=== PATIENT | female | born 1975 | race Caucasian/White ===

== ENCOUNTER 2017-05-01 06:36 | Inpatient (IN) | payer OTHER ==
[~2017-05-01 06:36] MED LIST: CITRIC ACID/SODIUM CITRATE 30 ML UNIT-DOSE CUP PO ONE; ELECTROLYTE-148 SOLN 500 ML IV ONE
[2017-05-01] MEDS ORDERED: ELECTROLYTE-148 SOLN 1,000 ML IV SCH (07:37)
[2017-05-01 07:39] VITALS: BMI 30.2
[2017-05-01] MEDS ORDERED: oxyCODONE HCL 5 MG TABLET PO PRN (08:00)
[2017-05-01] MEDS ORDERED: IBUPROFEN 800 MG/8 ML IJ IVPB PRN (08:00)
[2017-05-01] MEDS ORDERED: METHYLERGONOVINE MALEATE 0.2 MG/1 ML AMP IM PRN (08:00)
--- NOTE | 2017-05-01 08:03 | HP ---
Past Medical History - Admission History of Present Illness: 41 y/o female with h/o X 5 and C/S X 1 here for scheduled repeat c section at 39 weeks. Pt counseled on TOLAC and pt declined. complicated by AMA otherwise no complications. HIV negative, GBS negative. RH positive. HepBSag negative. History Source: Patient, Medical Record Limitations to Obtaining History: No Limitations - Past Medical History Cardiovascular: No: HTN, [place] Pulmonary: No: Asthma, COPD Gastrointestinal: No: GERD Hepatobiliary: No: Hepatitis B, Hepatitis C Renal/: No: Hematuria, UTI Reproductive: No: Ectopic , Fibroids, PID ...: 8 ...Para: 6 ...Term: 5 ...: 1 ...Spon : 1 ...Induced : 0 ...Multiple Gestation: 0 ...LMP: 07/18/16 ... Weeks Gestation by Dates: 41.0 ...EDC by Dates: 04/24/17 ...EDC by Sono: 05/08/17 Infectious Disease: No: HIV, STD's Psych: No: Anxiety, Bipolar, Depression Endocrine: No: Diabetes Mellitus, Hyperthyroidism - Past Surgical History Hx Myomectomy: No Hx Transabdominal Cerclage: No - Smoking History Smoking history: Never smoked Have you smoked in the past 12 months: No - Alcohol/Substance Use Hx Alcohol Use: No History of Substance Use: reports: None - Social History Usual Living Arrangement: Yes: Alone History of Recent Travel: No Home Medications - Allergies Allergies/Adverse Reactions: Allergies Allergy/AdvReac Type Severity Reaction Status Date / Time No Known Allergies Allergy Verified 05/01/17 07:08 - Home Medications Home Medications: Ambulatory Orders Pnv95/Ferrous Fumarate/FA [ Tablet] 1 each PO DAILY #1 07/10/12 Review of Systems - Review of Systems Constitutional: reports: No Symptoms Eyes: reports: No Symptoms HENT: reports: No Symptoms Neck: reports: No Symptoms Cardiovascular: reports: No Symptoms Respiratory: reports: No Symptoms Gastrointestinal: reports: No Symptoms Genitourinary: reports: No Symptoms Breasts: reports: No Symptoms Reported Musculoskeletal: reports: No Symptoms Integumentary: reports: No Symptoms Neurological: reports: No Symptoms Endocrine: reports: No Symptoms Hematology/Lymphatic: reports: No Symptoms Physical Exam - Maternity Vital Signs: Vital Signs Temperature 98.0 F 05/01/17 07:21 Pulse Rate 88 05/01/17 07:21 Respiratory Rate 20 05/01/17 07:21 Blood Pressure 115/71 05/01/17 07:21 O2 Sat by Pulse Oximetry (%) Constitutional: Yes: Well Nourished, No Distress, Calm Eyes: Yes: Conjunctiva Clear, EOM Intact HENT: Yes: Atraumatic, Normocephalic Neck: Yes: Supple, Trachea Midline Cardiovascular: Yes: Regular Rate and Rhythm Lungs: Clear to auscultation - Abdominal Exam/OB Number of Fetuses: Single Presentation: Vertex Contractions: No Monitor Mode: External Category: I Accelerations: Uniform Decelerations: None - Vaginal Exam/OB Speculum Exam: No Amniotic Membrane Status: Intact Presentation: Vertex/Position - Physical Exam Psychiatric: Yes: Alert, Oriented Hemorrhage Risk Assessment - Risk Factors Medium Risk Factors: Yes: None High Risk Factors: Yes: None Risk Score: 1 Risk Level: Medium Risk Problem List - Problems (1) Advanced maternal age (AMA), 40 years or greater Code(s): DAN6100 - (2) Elderly multigravida Code(s): O09.529 - SUPERVISION OF ELDERLY MULTIGRAVIDA, UNSPECIFIED TRIMESTER Assessment/Plan 41 y/o female with SIUP at 39 weeks, scheduled repeat delivery - AFVSS - Hgb 10.7 preop - NPO, SCDs, Diaz catheter - anesthesia and nursery aware - consents signed
[2017-05-01] MEDS ORDERED: morphine SULFATE/Preservative Free 0.5 MG/ML (1cc Syringe) SPIN ONE (08:16)
[2017-05-01] MEDS ORDERED: ONDANSETRON 4 MG/2 ML VIAL IVPUSH PRN (08:26)
--- NOTE | 2017-05-01 09:03 | OP ---
Operative Note - Note: Operative Date: 05/01/17 Pre-Operative Diagnosis: Prior delivery, declined TOLAC, SIUP at 39 weeks Operation: Repeat delivery Findings: normal b/l tubes and ovaries Post-Operative Diagnosis: Same as Pre-op Surgeon: Bernadette Bowman Equipment Maintenance Superintendent: Miller Hermosillo Anesthesiologist/SURGICAL SERVICES DIRECTOR: Joshua Cintron Anesthesia: Spinal Specimens Removed: placenta, cord blood sample Estimated Blood Loss (mls): 600 Fluid Volume Replaced (mls): 1,000 Operative Report Dictated: Yes
[2017-05-01] MEDS ORDERED: TUBERCULIN PPD 5 TU/0.1ML SYRINGE (IN PATIENT USE ONLY) ID ONE (10:00)
--- NOTE | 2017-05-01 10:11 | OP ---
DATE OF OPERATION: 05/01/2017 PREOPERATIVE DIAGNOSIS: Single intrauterine at 39 weeks, prior delivery, declined trial of labor after delivery. PROCEDURE: Repeat low transverse delivery. ESTOP SURGEON: Bernadette Bowman MD INTERNET RESEARCHER: Miller Hermosillo PA-C ANESTHESIA: Spinal. ANESTHESIOLOGIST: Joshua Cintron MD ESTIMATED BLOOD LOSS: 600 mL. COMPLICATIONS: None. SPECIMENS: Included placenta, cord blood collection. COUNTS: Sponge and needle counts correct. DISPOSITION: Stable to the PACU. BRIEF HISTORY AND PROCEDURE: Patient is a 41-year-old G8, P6 female with a history of a prior delivery who was counseled in the office on her options and elected to undergo a repeat delivery. The patient was scheduled for May 01, 2017. The patient was admitted to the hospital and consents were signed for the procedure. The patient was then taken back to the operating room where she was given spinal anesthesia by Dr. Cintron without difficulty and placed in the dorsal supine position on the table. Diaz catheter was placed under sterile conditions. She was then prepped and draped in the usual sterile fashion, and a hard time-out was performed. A Pfannenstiel skin incision was created in the skin and carried down to the underlying layer of rectus fascia with a scalpel. The rectus fascia was incised on either side of the midline and carried in superolateral direction with the Bovie. Then, the fascia was tented upward and dissected off the underlying layer of rectus muscle with the Bovie. The muscles were tented upward and dissected in the midline sharply until the peritoneum was identified, which was entered bluntly, and dissected to allow for adequate room for delivery. The bladder blade was inserted, a bladder flap was then created, and a bladder blade adjusted to protect the bladder. A low transverse incision on the uterus was completed and carried in a superolateral direction bluntly. The infants head was then delivered from the right occiput transverse position. The anterior and posterior shoulders were delivered with ease along with the remainder of the . The cord was clamped twice and cut in between. The was taken over to the warmer to be assessed by Neonatology staff, where the scores were 9 and 9. The placenta was then delivered manually and intact. The uterus was exteriorized from the abdomen, inspected, and cleared of all amniotic membrane and debris with a dry lap sponge. The hysterotomy was reapproximated in a double-layer closure using 0 Biosyn suture in a running locked fashion. The second layer again was 0 Biosyn suture in an imbricating layer. The bilateral fallopian tubes and ovaries were noted to be within normal limits. The posterior cul-se-sac was suctioned. The uterus was placed back in the abdomen. Bilateral gutters were inspected and cleared of all debris. Hysterotomy was noted to be hemostatic. The peritoneal layer was reapproximated using 2-0 chromic in a running layer. The musculature was reapproximated with 2 interrupted sutures using 2-0 chromic and 0 Biosyn. The fascia was reapproximated using 1 Vicryl in a running fashion. The subcutaneous tissue was irrigated and reapproximated in 2 layers using 0 Biosyn suture in interrupted fashion as well as a running, and the skin was reapproximated using 3-0 Vicryl in a subcuticular fashion. Steri-Strips were then applied. The patient tolerated the procedure well recovering in stable condition in the PACU at the time of this dictation. Sponge, needle, and instrument counts were reported to be correct. BERNADETTE BOWMAN DO /[id number]
[2017-05-01] MEDS: FERROUS SO4 325 MG TABLET (FP) PO SCH ×2 (10:50→23:29)
[2017-05-01] MEDS: OXYTOCIN 20 UNITS in 0.9% NS 1,000 ML IV SCH ×2 (11:30→18:51)
[2017-05-01] MEDS: ACETAMINOPHEN 325 MG TABLET (FP) PO PRN (21:10)
[2017-05-01] MEDS: IBUPROFEN 600 MG TABLET (FP) PO PRN (21:11)
[2017-05-02 03:35] LABS: ANION GAP 11 (8-16); CALCIUM 7.1 mg/dL (8.5-10.1); CO2 22 mmol/L (21-32); CREATININE 0.5 mg/dL (0.55-1.02); GLUCOSE,RANDOM 67 mg/dL (74-106)
[2017-05-02] MEDS: ACETAMINOPHEN 325 MG TABLET (FP) PO PRN ×5 (04:02→21:57)
[2017-05-02] MEDS: IBUPROFEN 600 MG TABLET (FP) PO PRN ×5 (04:02→21:59)
[2017-05-02] MEDS ORDERED: BISACODYL 10 MG SUPP.RECT RC PRN (08:01)
--- NOTE | 2017-05-02 08:02 | PN ---
Post Progress Note - Subjective Subjective: 41 yo Para 7 status post repeat , seen and evaluated. She's lying in bed, no complaints. Diaz catheter is in place; urine is clear. Post Day: 1 Type of Delivery: Repeat C/S Vital Signs: Vital Signs Temperature 97.7 F 05/02/17 06:00 Pulse Rate 87 05/02/17 06:00 Respiratory Rate 18 05/02/17 06:00 Blood Pressure 114/71 05/02/17 06:00 O2 Sat by Pulse Oximetry (%) 98 05/02/17 02:00 Breast Exam: Yes: Soft Uterus: Yes: Fundus Firm Incision: Yes: Dressing dry and intact Abdomen/GI: Yes: Abdomen soft Lochia: Yes: Rubra Lochia, amount: Small Extremities: Yes: Calves non-tender Perineum: Yes: Intact Activity: Other (Lying in bed) Problem List - Problems (1) Status post repeat low transverse section Code(s): Z98.891 - HISTORY OF UTERINE SCAR FROM PREVIOUS SURGERY Assessment/Plan Status post repeat Ambulation Analgesia as needed Continue routine post op care
[2017-05-02 08:47] LABS: BASOPHIL 0.5 % (0-2.0); EOSINOPHIL 0.2 % (0-4.5); MCH 27.5 pg (25.7-33.7); MCHC 34.5 g/dl (32.0-36.0); MEAN CELL VOLUME 79.9 fl (80-96); MEAN PLT VOLUME 7.8 fl (7.5-11.1); PLATELET COUNT 226 K/MM3 (134-434); RDW 15.1 % (11.6-15.6); WHITE BLOOD COUNT 9.9 K/mm3 (4.0-10.0)
[2017-05-02] MEDS: FERROUS SO4 325 MG TABLET (FP) PO SCH ×2 (09:20→21:10)
--- NOTE | 2017-05-02 09:57 | PN ---
Progress Note (short form) - Note Progress Note: ANESTHESIOLOGY POST-OP CHECK 41F s/p repeat under spinal anesthesia. POD #1. No acute complaints , pain 4/10 and tolerable. Denies N/V, backache, headache. No acute events overnight. Vital Signs Temperature 97.8 F 05/02/17 08:32 Pulse Rate 88 05/02/17 08:32 Respiratory Rate 18 05/02/17 08:32 Blood Pressure 106/64 05/02/17 08:32 O2 Sat by Pulse Oximetry (%) 98 05/02/17 02:00 Active Medications Acetaminophen (Tylenol -) 650 mg PO Q4H PRN PRN Reason: FEVER OR PAIN Last Admin: 05/02/17 08:17 Dose: 650 mg Bisacodyl (Dulcolax Suppository -) 10 mg RC PRN PRN PRN Reason: CONSTIPATION Diphenhydramine HCl (Benadryl Injection -) 25 mg IVPUSH Q4H PRN PRN Reason: Pruritis Last Admin: 05/02/17 02:13 Dose: 25 mg Diphtheria/Tetanus/Acell Pertussis (Boostrix -) 0.5 ml IM .ONCE ONE Stop: 05/02/17 10:01 Ferrous Sulfate (Feosol -) 325 mg PO BID [facility] Last Admin: 05/02/17 09:20 Dose: Not Given Oxytocin/Sodium Chloride (Normal Saline+20 Units Oxytocin -) 1,000 mls @ 125 mls/hr IV ASDIR [facility] Last Admin: 05/01/17 18:51 Dose: 125 mls/hr Parenteral Electrolytes (Plasma-Lyte 148 -) 1,000 mls @ 125 mls/hr IV ASDIR [facility] Last Admin: 05/01/17 07:15 Dose: 125 mls/hr Ibuprofen (Motrin -) 600 mg PO Q4H PRN PRN Reason: PAIN Last Admin: 05/02/17 08:18 Dose: 600 mg Ibuprofen (Caldolor Injection -) 800 mg IVPB Q8H PRN PRN Reason: PAIN OR FEVER Influenza Virus Vaccine Quadrival (Flulaval Quad [id number]) 60 mcg IM .ONCE ONE Stop: 05/02/17 10:01 Methylergonovine Maleate (Methergine Injection -) 0.2 mg IM Q4H PRN PRN Reason: Excessive Bleeding (L&D) Oxycodone HCl (Roxicodone -) 5 mg PO Q4H PRN PRN Reason: PAIN LEVEL 1-5 Oxycodone HCl (Roxicodone -) 10 mg PO Q4H PRN PRN Reason: PAIN LEVEL 6-10 Senna/Docusate Sodium (Pericolace -) 2 tablet PO HS PRN PRN Reason: CONSTIPATION Simethicone (Mylicon -) 80 mg PO Q4H PRN PRN Reason: GAS Gen: awake, NAD No apparent anesthesia complications. Pain controlled. Continue management as per primary team.
[2017-05-02] MEDS ORDERED: DIPHTH,PERTUSS(ACELL),TET 0.5 ML DISP.SYRIN IM ONE (10:00)
[2017-05-02] MEDS ORDERED: FLU VACC QS2017-18 36MOS UP/PF 60 MCG/0.5 ML SYRINGE IM ONE (10:00)
[2017-05-02] MEDS: SIMETHICONE 80 MG TAB.CHEW (FP) PO PRN ×3 (11:36→21:57)
[2017-05-02] MEDS: SENNOSIDES/DOCUSATE COMBO (SENNA PLUS) TABLET (UD) PO PRN (21:59)
[2017-05-03] MEDS: ACETAMINOPHEN 325 MG TABLET (FP) PO PRN (02:43)
[2017-05-03] MEDS: SIMETHICONE 80 MG TAB.CHEW (FP) PO PRN ×4 (02:43→18:29)
[2017-05-03] MEDS: IBUPROFEN 600 MG TABLET (FP) PO PRN ×4 (02:44→18:30)
--- NOTE | 2017-05-03 06:17 | PN ---
Post Progress Note - Subjective Subjective: 41 yo Para 7 status post repeat , seen and evaluated. Doing well. Post Day: 2 Type of Delivery: Repeat C/S Vital Signs: Vital Signs Temperature 98 F 05/02/17 22:00 Pulse Rate 89 05/02/17 22:00 Respiratory Rate 18 05/02/17 22:00 Blood Pressure 108/64 05/02/17 22:00 O2 Sat by Pulse Oximetry (%) 98 05/02/17 02:00 Breast Exam: Yes: Soft Uterus: Yes: Fundus Firm Incision: Yes: Dressing dry and intact Abdomen/GI: Yes: Abdomen soft, Tolerating PO Lochia: Yes: Rubra Lochia, amount: Small Extremities: Yes: Calves non-tender Perineum: Yes: Intact Activity: Ambulating - Labs Labs: CBC WBC 9.9 K/mm3 (4.0-10.0) D 05/02/17 07:35 RBC 3.31 M/mm3 (3.60-5.2) L 05/02/17 07:35 Hgb 9.1 GM/dL (10.7-15.3) L D 05/02/17 07:35 Hct 26.5 % (32.4-45.2) L D 05/02/17 07:35 MCV 79.9 fl (80-96) L 05/02/17 07:35 MCH 27.5 pg (25.7-33.7) 05/02/17 07:35 MCHC 34.5 g/dl (32.0-36.0) 05/02/17 07:35 RDW 15.1 % (11.6-15.6) 05/02/17 07:35 Plt Count 226 K/MM3 (134-434) 05/02/17 07:35 MPV 7.8 fl (7.5-11.1) D 05/02/17 07:35 Neutrophils % 79.0 % (42.8-82.8) D 05/02/17 07:35 Lymphocytes % 14.2 % (8-40) D 05/02/17 07:35 Monocytes % 6.1 % (3.8-10.2) 05/02/17 07:35 Eosinophils % 0.2 % (0-4.5) 05/02/17 07:35 Basophils % 0.5 % (0-2.0) 05/02/17 07:35 Problem List - Problems (1) Status post repeat low transverse section Code(s): Z98.891 - HISTORY OF UTERINE SCAR FROM PREVIOUS SURGERY Assessment/Plan Status post repeat Ambulation Analgesia as needed Continue routine post op care
[2017-05-03] MEDS: oxyCODONE HCL 5 MG TABLET PO PRN ×3 (07:42→18:29)
[2017-05-03] MEDS: FERROUS SO4 325 MG TABLET (FP) PO SCH ×2 (09:06→21:27)
[2017-05-03] MEDS: SENNOSIDES/DOCUSATE COMBO (SENNA PLUS) TABLET (UD) PO PRN (21:27)
[2017-05-04] MEDS: ACETAMINOPHEN 325 MG TABLET (FP) PO PRN ×2 (01:38→08:26)
[2017-05-04 07:41] LABS: BASOPHIL 0.4 % (0-2.0); EOSINOPHIL 0.8 % (0-4.5); MCH 26.7 pg (25.7-33.7); MCHC 33.3 g/dl (32.0-36.0); MEAN CELL VOLUME 80.2 fl (80-96); MEAN PLT VOLUME 7.4 fl (7.5-11.1); NEUTROPHILS 62.4 % (42.8-82.8); PLATELET COUNT 290 K/MM3 (134-434); RDW 15.1 % (11.6-15.6); WHITE BLOOD COUNT 6.5 K/mm3 (4.0-10.0)
--- NOTE | 2017-05-04 07:44 | DS ---
Physical Exam-[employer] Vital Signs: Vital Signs Temperature 97.9 F 05/03/17 22:00 Pulse Rate 87 05/03/17 22:00 Respiratory Rate 20 05/03/17 22:00 Blood Pressure 116/73 05/03/17 22:00 O2 Sat by Pulse Oximetry (%) 98 05/02/17 02:00 Constitutional: Yes: Well Nourished, No Distress Respiratory: Yes: WNL Gastrointestinal: Yes: WNL Musculoskeletal: Yes: WNL Extremities: Yes: WNL Edema: No Labs: CBC, BMP 05/02/17 02:55 Delivery - Delivery Type of Anesthesia: Spinal Episiotomy/Laceration: None EBL (cc): 600 Delivery, Single - Stages of Labor Time of Delivery: 08:27 Time Placenta Delivered: 08:28 - Condition of Infant Investment Sales Assistant/Size Marker Present: Yes Name: Chaz Lima Gender: Male Weight: 8 lb 1 oz Position: Right, OT Total Hours ROM (Hrs/Mins): 2 min - 1 Minute Total Score: 9 5 Minutes Total Score: 9 - [place] Feeding Plan Initial Plan: Elected not to breastfeed exclusively throughout hospitalization Discharge Summary Reason For Visit: ADMIT C/S Current Active Problems Advanced maternal age (AMA), 40 years or greater (Acute) Elderly multigravida (Acute) Status post repeat low transverse section (Acute) Procedures: Principal: Repeat Section Condition: Good - Instructions Diet, Activity, Other Instructions: Physical activity Resume your normal everyday activity as tolerated no heavy lifting or exercise until seen by your surgeon. You may walk unlimited vianca of and climb stairs. You may resume driving the car when you feel safe and comfortable behind the wheel. No sexual activity as instructed. Wound care If you have a bandage, leave it on, and keep dry for 48-72 hours. After that time discard the outer bandage. If they are tapes on the skin under the out of bandage leave them in place. They will peel off in the next 7 to 10 days. Do Not Peel them off. You may shower the day after surgery. If there are tapes present on the skin, you may shower over them. Diet There are no dietary restrictions. Eat healthy, high-fiber foods. Drink 6 to 8 glasses of liquid each day. This will assist in keeping your bowels are regular. Pain management You may take Tylenol or acetaminophen or Ibuprofen (for example, Motrin, Advil etc.) from my pain prescription medication is ordered should be taken as prescribed for moderate to severe pain. Call MD for any of the following: Severe pain not relieved by medication Fever of 101 or higher Excessive bleeding or drainage on dressing Inability to urinate Referrals: Bernadette Bowman DO [Staff Physician] - Disposition: HOME - Home Medications Comprehensive Discharge Medication List: Ambulatory Orders Pnv95/Ferrous Fumarate/FA [ Tablet] 1 each PO DAILY #1 07/10/12 Ibuprofen [Motrin -] 600 mg PO QID PRN #28 tablet 05/04/17
[2017-05-04] MEDS: SIMETHICONE 80 MG TAB.CHEW (FP) PO PRN (08:26)
[2017-05-04] MEDS: IBUPROFEN 600 MG TABLET (FP) PO PRN (08:27)
[2017-05-04 09:12] VITALS: BP 121/73; PULSE 99; TEMP 98.2
[2017-05-04] MEDS: FERROUS SO4 325 MG TABLET (FP) PO SCH (09:37)
--- NOTE | 2017-05-07 14:08 | PATH ---
Surgical Pathology Report Patient Name: MARIELA SIMPSON Med. Rec. #: [id number] /Age/Gender: 1975 (Age: 41) / F Account: [id number] Location: [facility] OBS/AREA RELIEF PILOT Taken: 05/01/2017 Received: 05/04/2017 Reported: 05/07/2017 Physicians: Bernadette Bowman M.D. Specimen(s) Received PLACENTA Clinical History G8 are a P6 05/11 Final Diagnosis PLACENTA, SECTION: 512 g THIRD TRIMESTER PLACENTA WITH TRIVASCULAR UMBILICAL CORD AND UNREMARKABLE PLACENTAL MEMBRANES. Electronically Signed Korin Mohan M.D. Gross Description The specimen is received fresh labeled placenta and is a 512 gram, 15.0 x 14.5 x 3.2 cm. placenta with attached membranes and umbilical cord. The attached membranes are patiño, thick, cloudy and insert marginally. The umbilical cord measures 37 cm. in length and averages 1 cm. in diameter. The cord inserts eccentrically, 1 cm. to the nearest margin. No true knots or strictures are identified. Cut surface of the umbilical cord reveals 3 vessels. The surface is nick-blue with minimal fibrin deposition and appropriate caliber vessels. The maternal surface is red-brown with focal defects. Sectioning reveals red-brown, spongy parenchyma. No lesions are identified. Electronic Organ Technician sections are submitted in three cassettes as follows: 1- membrane rolls and umbilical cord; 2-3- full thickness sections of placenta. 05/06/201705/06/2017
== END 2017-05-04 10:40 | disposition home or self-care (01) | DRG 766 ==
LOC: JLDR 06:36 → J3W 11:10
PROVIDERS: ADMIT Obstetrics & Gynecology; ATTEND Obstetrics & Gynecology
PROC: 10D00Z1 Extraction of Products of Conception, Low, Open Approach (ICD-10-PCS; principal; 2017-05-01)
DX: O34.211 Maternal care for low transverse scar from previous cesarean delivery (principal); Z3A.39 39 weeks gestation of pregnancy; Z37.0 Single live birth
CPT/HCPCS: 36415; 71020-TC; 80048; 85025; 88307-TC; 90686; 90715; G0008

== ENCOUNTER 2018-03-31 11:32 | Day surgery (SDC) | payer SELFPAY ==
[2018-03-30 15:24] VITALS: BMI 25.7
[2018-03-31] MEDS ORDERED: oxyCODONE HCL 5 MG TABLET PO PRN ×2 (12:20)
[2018-03-31] MEDS ORDERED: ONDANSETRON 4 MG/2 ML VIAL IVPUSH PRN (12:20)
[2018-03-31] MEDS ORDERED: LACTATED RINGERS SOLUTION 1,000 ML IV SCH (12:30)
[2018-03-31] MEDS ORDERED: LIDOCAINE HCL/PF 2% SDV 5ML VIAL ONE (13:05)
[2018-03-31] MEDS ORDERED: PROPOFOL 20 ML ONE (13:06)
[2018-03-31] MEDS ORDERED: ROCURONIUM BROMIDE 50 MG/5 ML VIAL ONE (13:06)
[2018-03-31] MEDS ORDERED: MIDAZOLAM HCL 2 MG/2 ML SINGLE DOSE VIAL ONE (13:06)
[2018-03-31] MEDS ORDERED: LIDOCAINE HCL 2% (20ML MULTI-DOSE VIAL) NR ONE (13:21)
[2018-03-31] MEDS ORDERED: EPINEPHrine/PF 1 MG/1 ML (1:1,000) AMPULE ONE (13:22)
[2018-03-31] MEDS ORDERED: ceFAZolin SODIUM 1 GM VIAL IVPB ONE (13:45)
--- NOTE | 2018-03-31 13:57 | HP ---
Admitting History and Physical - Admission Chief Complaint: Lipodystrophy upper ,lower back History Source: Patient, Family Member Limitations to Obtaining History: No Limitations, Other (Frisian Language) - Past Medical History ...LMP: 03/23/18 ...: No ...: 7 - Past Surgical History Past Surgical History: Yes: (Last month 10months ago) - Smoking History Smoking history: Never smoked Have you smoked in the past 12 months: No - Alcohol/Substance Use Hx Alcohol Use: No History of Substance Use: reports: None - Social History History of Recent Travel: No Home Medications - Allergies Allergies/Adverse Reactions: Allergies Allergy/AdvReac Type Severity Reaction Status Date / Time No Known Allergies Allergy Verified 03/30/18 15:30 - Home Medications Home Medications: Ambulatory Orders NK [No Known Home Medication] 03/30/18 Physical Examination Vital Signs: Vital Signs Temperature 97.9 F 03/31/18 12:08 Pulse Rate 74 03/31/18 12:08 Respiratory Rate 20 03/31/18 12:08 Blood Pressure 101/66 03/31/18 12:08 O2 Sat by Pulse Oximetry (%) 100 03/31/18 12:17 Assessment/Plan 42 year old Frisian speaking female requests Liposuction upper /Lower abdomen, folds very apparent . No previous surgery on back Assymetry Right more than left Approximate each fold 250 cc ..1 litre under Super-wet infilteration using Gomez Machine warm liquid Plan : 1.Liposuction using PAL in Prone position 2 SED 3. Early ambulation
[2018-03-31] MEDS ORDERED: ceFAZolin SODIUM 1 GM VIAL ONE (14:02)
[2018-03-31] MEDS ORDERED: GLYCOPYRROLATE 0.2 MG/1 ML VIAL ONE (15:30)
[2018-03-31] MEDS ORDERED: NEOSTIGMINE METHYLSULFATE 0.5 MG/ML - 10 ML MDV ONE (15:30)
[2018-03-31] MEDS ORDERED: ACETAMINOPHEN 1000 MG/100 ML VIAL (NON FORMULARY) IVPB ONE ×2 (16:52→17:01)
[2018-03-31] MEDS ORDERED: POTASSIUM CHLORIDE 10 MEQ in SODIUM CHLORIDE 1,000 ML IVPB SCH (17:15)
--- NOTE | 2018-03-31 17:43 | HOSP ---
Subjective - Review of Symptoms Subjective: Sent narcotic prescription to [facility] pharmacy on behalf of Dr Dirk Magdaleno verified no narcotics given Reference #: [id number] Physical Examination Vital Signs: Vital Signs Temperature 97.7 F 03/31/18 16:41 Pulse Rate 93 H 03/31/18 17:25 Respiratory Rate 16 03/31/18 17:25 Blood Pressure 113/56 L 03/31/18 17:25 O2 Sat by Pulse Oximetry (%) 100 03/31/18 17:25
[2018-03-31 18:22] VITALS: TEMP 98.2
[2018-03-31] MEDS ORDERED: OXYBUTYNIN CHLORIDE 5 MG TABLET PO ONE (18:25)
[2018-03-31] MEDS ORDERED: oxyCODONE HCL 5 MG TABLET PO ONE (18:27)
[2018-03-31 19:10] VITALS: BP 120/66; PULSE 97
--- NOTE | 2018-04-01 06:17 | OP ---
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 PROCEDURE: Liposuction using PAL (power-assisted liposuction) machine. ANESTHESIOLOGIST: Arleth Owens MD SURGEON: Grisel Oakes MD ANESTHESIA: General with supplementation of subcutaneous fluids. DESCRIPTION OF PROCEDURE: The patient was brought to the operating room. Markings were carried out in the holding area. The patient was informed that right side asymmetry is present. Right side has more excessive fat. Fat is located in the upper and lower back in the subcutaneous tissue. No lipomas. The patient was intubated while on the stretcher. She was then turned into prone position. Bony prominences and all areas were protected. Skin was prepped with Betadine and then draped in a standard aseptic manner. A standard procedure of identification and procedure was done. First portion was injection of subcutaneous tissue with liquid, which was prepared and warmed preoperatively. Solution consisted of 1000 mL of normal saline, 20 mg of 1% lidocaine, and 1 ampule of epinephrine. The patient had been placed on warm blankets. Upper and lower extremities were kept warm. Gomez machine was used for subcutaneous infiltration. Then 1 L was injected in each quadrant. After waiting for 20 minutes, liposuction was carried out using the PAL machine. Total amount of liquid injected for all 4 quadrants was 4 L. Suctioning was carried out in the deeper subcutaneous tissue. A total of 1200 mL fluid was aspirated. The incisions were debrided and then repaired with 5-0 plain gut. Steri-Strips were applied followed by dressings consisting of 4 x 4's and Combine and bacitracin. Compression garment was placed. The patient tolerated the procedure well and will be kept in ASU until she is stabilized. The patient was given a gram of Ancef prior to starting the procedure. GRISEL OAKES M.D. [id number]
== END 2018-03-31 19:00 | disposition home or self-care (01) ==
LOC: JASU-SURG 11:32
PROVIDERS: ATTEND Plastic Surgery
PROC: 0J073ZZ Alteration of Back Subcutaneous Tissue and Fascia, Percutaneous Approach (ICD-10-PCS; principal; 2018-03-31 13:00)
DX: E88.1 Lipodystrophy, not elsewhere classified (principal); E65 Localized adiposity
CPT/HCPCS: 84703; 94760; J0131

== ENCOUNTER 2022-06-10 11:14 | Day surgery (SDC) | payer OTHER ==
[2022-06-09 16:00] VITALS: BMI 27.1
[2022-06-10 12:05] VITALS: RESP 16
[2022-06-10 13:33] VITALS: PULSE 84; TEMP 97.9
[2022-06-10 14:37] VITALS: BP 106/64
== END 2022-06-10 14:05 | disposition home or self-care (01) ==
LOC: FASU-ENDO 11:14
PROVIDERS: ATTEND Internal Medicine Gastroenterology
PROC: 0DB68ZX Excision of Stomach, Via Natural or Artificial Opening Endoscopic, Diagnostic (ICD-10-PCS; 2022-06-10)
PROC: 0DB48ZX Excision of Esophagogastric Junction, Via Natural or Artificial Opening Endoscopic, Diagnostic (ICD-10-PCS; 2022-06-10)
PROC: 0DB98ZX Excision of Duodenum, Via Natural or Artificial Opening Endoscopic, Diagnostic (ICD-10-PCS; principal; 2022-06-10 13:12)
DX: K25.9 Gastric ulcer, unspecified as acute or chronic, without hemorrhage or perforation (principal); K26.9 Duodenal ulcer, unspecified as acute or chronic, without hemorrhage or perforation; K29.50 Unspecified chronic gastritis without bleeding; B96.81 Helicobacter pylori [H. pylori] as the cause of diseases classified elsewhere; K20.90 Esophagitis, unspecified without bleeding; R10.13 Epigastric pain
CPT/HCPCS: 81025; 88305-TC; 88342-TC

== ENCOUNTER 2022-10-07 10:35 | Day surgery (SDC) | payer OTHER ==
[2022-09-30 15:19] VITALS: BMI 24.3
[2022-10-07 12:10] VITALS: PULSE 77; TEMP 97.8
[2022-10-07 12:41] VITALS: BP 105/71; RESP 18
== END 2022-10-07 13:02 | disposition home or self-care (01) ==
LOC: FASU-ENDO 10:35
PROVIDERS: ATTEND Internal Medicine Gastroenterology
PROC: 0DB68ZX Excision of Stomach, Via Natural or Artificial Opening Endoscopic, Diagnostic (ICD-10-PCS; 2022-10-07)
PROC: 0DJD8ZZ Inspection of Lower Intestinal Tract, Via Natural or Artificial Opening Endoscopic (ICD-10-PCS; principal; 2022-10-07 11:41)
DX: Z12.11 Encounter for screening for malignant neoplasm of colon (principal); K64.1 Second degree hemorrhoids; K29.50 Unspecified chronic gastritis without bleeding; Z13.810 Encounter for screening for upper gastrointestinal disorder
CPT/HCPCS: 84703; 88305-TC; 88342-TC